=== PATIENT | male | born 1945 | race Caucasian/White ===

== ENCOUNTER → 2017-08-07 | Outpatient (CLI) | payer OTHER | LOC: RAH 11:53 | PROVIDERS: ATTEND Pain Medicine Interventional Pain Medicine | DX: M25.551 Pain in right hip (principal) | CPT/HCPCS: 73502 ==

== ENCOUNTER → 2017-10-24 | Outpatient (CLI) | payer OTHER | END | disposition home or self-care (01) | LOC: RAH 12:14 | PROVIDERS: ATTEND Pain Medicine Interventional Pain Medicine | DX: M47.26 Other spondylosis with radiculopathy, lumbar region (principal); M85.88 Other specified disorders of bone density and structure, other site; M41.86 Other forms of scoliosis, lumbar region; I70.0 Atherosclerosis of aorta; I71.9 Aortic aneurysm of unspecified site, without rupture; M25.78 Osteophyte, vertebrae | CPT/HCPCS: 72100 ==

== ENCOUNTER → 2018-06-25 | Outpatient (CLI) | payer OTHER | END | disposition home or self-care (01) | LOC: RAH 11:41 | PROVIDERS: ATTEND Neuromusculoskeletal Medicine & OMM | DX: M51.36 Other intervertebral disc degeneration, lumbar region (principal); M48.061 Spinal stenosis, lumbar region without neurogenic claudication; M51.27 Other intervertebral disc displacement, lumbosacral region | CPT/HCPCS: 72148 ==

== ENCOUNTER → 2019-02-19 | Outpatient (CLI) | payer OTHER | END | disposition home or self-care (01) | LOC: RAH 14:58 | PROVIDERS: ATTEND Neuromusculoskeletal Medicine & OMM | DX: M43.16 Spondylolisthesis, lumbar region (principal); I70.0 Atherosclerosis of aorta; Z98.1 Arthrodesis status | CPT/HCPCS: 72120 ==

== ENCOUNTER → 2019-04-21 | Outpatient (CLI) | payer OTHER | END | disposition home or self-care (01) | LOC: RAH 14:03 | PROVIDERS: ATTEND Neuromusculoskeletal Medicine & OMM | DX: M54.5 Low back pain (principal) | CPT/HCPCS: 72131 ==

== ENCOUNTER → 2022-10-05 | Outpatient (CLI) | payer OTHER | END | disposition home or self-care (01) | LOC: SHCH 13:30 | PROVIDERS: ATTEND Internal Medicine Cardiovascular Disease | DX: I08.0 Rheumatic disorders of both mitral and aortic valves (principal); I11.9 Hypertensive heart disease without heart failure | CPT/HCPCS: 93306 ==